=== PATIENT | male | born 1980 | race Caucasian/White ===

== ENCOUNTER 2023-08-26 19:26 | Emergency (ER) | payer SELFPAY ==
[2023-08-26] MEDS: Lactated Ringers 1,000 ML IV SCH (20:10)
[2023-08-26] MEDS: Sodium Chloride 0.9% 10 ML Syringe FLUSH PRN (20:12)
[2023-08-26 20:29] LABS: BASOPHILS PERCENT AUTO 0.2 % (0.0-1.0); EOSINOPHILS ABSOLUTE AUTO 0.1 K/mm3 (0.0-0.4); EOSINOPHILS PERCENT AUTO 0.5 % (0.0-6.0); HEMATOCRIT 47.7 % (42.0-52.0); HEMOGLOBIN 17.2 gm/dl (14.0-18.0); IMMATURE GRAN ABSOLUTE AUTO 0.06 K/mm3 (0.00-0.05); IMMATURE GRAN PERCENT AUTO 0.4 % (0.0-0.4); LYMPHOCYTES PERCENT AUTO 14.4 % (24.0-44.0); MEAN CORPUSCULAR HGB CONC 36.1 g/dl (32.0-36.0); MEAN CORPUSCULAR VOLUME 83.2 fl (83.0-99.0); MEAN PLATELET VOLUME 9.5 fl (9.4-12.4); MONOCYTES PERCENT AUTO 7.1 % (0.0-8.0); NEUTROPHILS ABSOLUTE AUTO 10.6 K/mm3 (1.8-7.7); NEUTROPHILS PERCENT AUTO 77.4 % (41.0-71.0); PLATELET COUNT,PLT 304 K/mm3 (150-400); RED BLOOD CELL COUNT 5.73 M/mm3 (4.52-5.90); WHITE BLOOD CELL COUNT,WBC 13.72 K/mm3 (3.9-11.3)
[2023-08-26 20:48] LABS: A/G RATIO 1.4 (1-2); ALBUMIN 5.2 g/dl (3.4-5.0); ANION GAP 20.8 (5-15); BILIRUBIN TOTAL 1.1 mg/dL (0.2-1.0); BUN/CREATININE RATIO 14.3 (14-18); CALCIUM 9.6 mg/dL (8.5-10.1); CREATININE 2.1 mg/dL (0.7-1.3); EST CRCL DRUG DOSING (CG) 48.31 mL/min; MAGNESIUM 2.2 mg/dL (1.8-2.4); PROTEIN TOTAL,TP 8.8 g/dl (6.4-8.2)
[2023-08-26 20:54] LABS: LACTIC ACID 1.1 mmol/L (0.4-2.0)
[2023-08-26 20:55] LABS: POTASSIUM,K 3.8 mEq/L (3.5-5.1)
[2023-08-26] MEDS: Sodium Chloride 0.9% 1,000 ML IV SCH (21:39)
[2023-08-26 21:45] LABS: APPEARANCE,URINE CLEAR (Clear); BILIRUBIN,URINE NEGATIVE (Negative); COLOR,URINE YELLOW (Yellow); GLUCOSE,URINE NEGATIVE (Negative); KETONES,URINE 2+ (Negative); LEUKOCYTE ESTERASE,URINE NEGATIVE (Negative); NITRITE,URINE NEGATIVE (Negative); OCCULT BLOOD,URINE NEGATIVE (Negative); PH,URINE 5.5 (5.0-8.0); PROTEIN,URINE 1+ (Negative); UROBILINOGEN,URINE 0.2 (0.2-1.0)
[2023-08-26 21:54] LABS: BACTERIA,URINE FEW /hpf (FEW); MUCUS,URINE MODERATE /hpf (FEW); RBC,URINE 0-5 /hpf (0-5); SQUAMOUS EPITHELIAL CELLS,UR 0-5 /hpf (0-5); WBC,URINE 0-5 /hpf (0-5)
[2023-08-26 21:55] LABS: HYALINE CASTS,URINE 20-30 /lpf (0-5)
[2023-08-26] MEDS: Sodium Chloride 0.9% 1,000 ML IV ONE (23:00)
== END 2023-08-27 00:15 | disposition home or self-care (01) ==
LOC: JD.ED 19:26
DX: T67.5XXA Heat exhaustion, unspecified, initial encounter (principal); E86.0 Dehydration; X58.XXXA Exposure to other specified factors, initial encounter
CPT/HCPCS: 36415; 71045; 80053; 80307; 81001; 83605; 83690; 83735; 84484; 85025; 96360; 96361; 99283; J3490; J7030; J7120; 99284